=== PATIENT | female | born 1990 | race Caucasian/White ===

== ENCOUNTER → 2024-03-13 10:49 | Outpatient (REF) | payer OTHER, SELFPAY ==
[2024-03-13 15:09] LABS: Varicella Zoster IgG (VZV) Negative
[2024-03-15 14:10] LABS: Quantiferon Mitogen minus NIL 9.99 IU/mL; Quantiferon NIL 0.01 IU/mL; Quantiferon Plus TB2 minus NIL 0.01 IU/mL (<=0.34); Quantiferon TB Gold Plus Negative (Negative)
== END ==
LOC: REG 10:49
PROVIDERS: ATTENDING PHYSICIAN Nurse Practitioner; FAMILY PHYSICIAN Family Medicine
DX: Z23 Encounter for immunization (principal)
CPT/HCPCS: 36415; 86480; 86787